=== PATIENT | male | born 1980 | race Caucasian/White ===

== ENCOUNTER 2021-05-13 19:08 | Emergency (ER) | payer BC, OTHER ==
[~2021-05-13 19:08] MED LIST: LEVEMIR100 UNIT/1 SQ
[2021-05-13 19:45] LABS: HEMOGLOBIN 17.2 gm/dl (14.0-17.5); RED BLOOD COUNT 5.61 M/UL (4.20-5.50); WHITE BLOOD COUNT 8.3 K/UL (4.5-11.0)
[2021-05-13 20:11] LABS: BUN/CREATININE RATIO 21 (0-10)
[2021-05-14 00:35] LABS: BUN/CREATININE RATIO 17 (0-10)
[2021-05-14] MEDS ORDERED: REGLAN5 MG PO (00:49)
[2021-05-15] MEDS ORDERED: ZOFRAN ODT 4 MG4 MG PO (01:57)
== END 2021-05-14 01:00 | disposition home or self-care (01) ==
LOC: ER1 19:08
PROVIDERS: Student in an Organized Health Care Education/Training Program
DX: E11.43 Type 2 diabetes mellitus with diabetic autonomic (poly)neuropathy (principal); K31.84 Gastroparesis; E87.6 Hypokalemia; Z20.822 Contact with and (suspected) exposure to COVID-19
CPT/HCPCS: 71045; 80053; 80307; 81001; 82009; 82550; 82553; 82803; 82962; 83605; 83690; 83735; 83874; 83880; 84100; 84439; 84443; 84484; 85025; 93005; 96365; 96375; 99284; G0480; J1885; J2270; J2405; J2765; J3475; J3480; J7070; Q9967; U0002

== ENCOUNTER 2021-05-14 18:58 | Emergency (ER) | payer OTHER ==
[~2021-05-14 18:58] MED LIST changes: +REGLAN5 MG PO
[2021-05-14 19:41] LABS: HEMOGLOBIN 15.3 gm/dl (14.0-17.5); WHITE BLOOD COUNT 6.4 K/UL (4.5-11.0)
[2021-05-14 19:44] LABS: RED BLOOD COUNT 5.03 M/UL (4.20-5.50)
[2021-05-14 20:24] LABS: BUN/CREATININE RATIO 14 (0-10)
[2021-05-15] MEDS ORDERED: ZOFRAN ODT 4 MG4 MG PO (01:57)
== END 2021-05-15 02:05 | disposition home or self-care (01) ==
LOC: ER1 18:58
PROVIDERS: Physician Assistant
DX: R11.2 Nausea with vomiting, unspecified (principal); E11.9 Type 2 diabetes mellitus without complications
CPT/HCPCS: 80053; 81001; 82009; 82800; 83690; 83735; 85025; 85652; 99283; J2270; J2765

== ENCOUNTER 2021-05-17 07:31 | Emergency (ER) | payer OTHER ==
[~2021-05-17 07:31] MED LIST changes: +ZOFRAN ODT 4 MG4 MG PO
[2021-05-17 08:42] LABS: HEMOGLOBIN 12.1 gm/dl (14.0-17.5); RED BLOOD COUNT 4.02 M/UL (4.20-5.50); WHITE BLOOD COUNT 34.7 K/UL (4.5-11.0)
[2021-05-17 14:01] LABS: BUN/CREATININE RATIO 39 (0-10)
== END 2021-05-17 15:10 ==
LOC: ER1 07:31
PROVIDERS: Emergency Medicine
DX: E11.10 Type 2 diabetes mellitus with ketoacidosis without coma (principal); E11.65 Type 2 diabetes mellitus with hyperglycemia; R41.82 Altered mental status, unspecified; Z20.822 Contact with and (suspected) exposure to COVID-19; E87.6 Hypokalemia; E87.2 Acidosis
CPT/HCPCS: 31500; 36556; 36600; 51702; 70450; 71045; 80053; 80307; 81001; 82009; 82550; 82553; 82803; 82962; 83605; 83690; 84439; 84443; 84484; 85007; 85027; 87040; 93005; 94002; 94760; 96374; 96375; 99285; 99291; 99292; C1751; J2250; J2704; J7070; U0002

== ENCOUNTER 2021-07-07 17:16 | Inpatient (IN) | payer OTHER ==
[2021-07-07 18:57] LABS: HEMOGLOBIN 15.7 gm/dl (14.0-17.5); RED BLOOD COUNT 5.04 M/UL (4.20-5.50); WHITE BLOOD COUNT 14.8 K/UL (4.5-11.0)
[2021-07-07 19:20] LABS: BUN/CREATININE RATIO 39 (0-10)
== END 2021-07-08 00:15 | disposition short-term general hospital (02) | DRG 639 ==
LOC: ER1 17:16 → CDU 20:19
PROVIDERS: Emergency Medicine; ADMIT Internal Medicine
DX: E11.10 Type 2 diabetes mellitus with ketoacidosis without coma (principal); E11.43 Type 2 diabetes mellitus with diabetic autonomic (poly)neuropathy; K31.84 Gastroparesis; Z20.822 Contact with and (suspected) exposure to COVID-19; Z79.899 Other long term (current) drug therapy; Z79.84 Long term (current) use of oral hypoglycemic drugs
CPT/HCPCS: 80053; 81001; 82009; 82800; 82962; 83605; 83690; 85025; 96365; 96375; 99284; J1170; J2405; J2550; J7030; Q9967; U0002

== ENCOUNTER 2021-12-09 00:45 | Emergency (ER) | payer OTHER ==
[2021-12-09 01:23] LABS: HEMOGLOBIN 14.4 gm/dl (14.0-17.5); RED BLOOD COUNT 4.98 M/UL (4.20-5.50); WHITE BLOOD COUNT 10.2 K/UL (4.5-11.0)
[2021-12-09 01:46] LABS: BUN/CREATININE RATIO 25 (0-10)
[2021-12-09] MEDS ORDERED: ZOFRAN ODT 4 MG4 MG PO (04:10)
[2021-12-09] MEDS ORDERED: BENTYL 20MG TAB20 MG PO (04:10)
== END 2021-12-09 05:45 | disposition home or self-care (01) ==
LOC: ER1 00:45
PROVIDERS: Physician Assistant
DX: E10.65 Type 1 diabetes mellitus with hyperglycemia (principal); R91.1 Solitary pulmonary nodule; Z20.822 Contact with and (suspected) exposure to COVID-19
CPT/HCPCS: 36600; 71045; 80053; 82009; 82803; 83605; 83690; 83735; 84439; 84443; 85025; 85652; 86140; 93005; 96374; 96375; 96376; 99285; J1885; J2405; J7030; Q9967; U0002

== ENCOUNTER 2021-12-12 06:27 | Inpatient (IN) | payer OTHER ==
[~2021-12-12] VITALS: Ht 190.5 cm; Wt 54.4 kg
[~2021-12-12 06:27] MED LIST changes: +BENTYL 20MG TAB20 MG PO
[2021-12-12 07:42] LABS: BUN/CREATININE RATIO 43 (0-10); HEMOGLOBIN 14.6 gm/dl (14.0-17.5); RED BLOOD COUNT 4.96 M/UL (4.20-5.50); WHITE BLOOD COUNT 14.4 K/UL (4.5-11.0)
[2021-12-12] MEDS ORDERED: INSULIN AS100 UNIT/3 SQ (10:15)
[2021-12-12 11:19] LABS: BUN/CREATININE RATIO 46 (0-10)
[2021-12-12 15:29] LABS: BUN/CREATININE RATIO 44 (0-10)
[2021-12-13 05:37] LABS: HEMOGLOBIN 12.2 gm/dl (14.0-17.5); RED BLOOD COUNT 4.14 M/UL (4.20-5.50); WHITE BLOOD COUNT 10.2 K/UL (4.5-11.0)
[2021-12-13 05:45] LABS: BUN/CREATININE RATIO 31 (0-10)
== END 2021-12-13 09:44 | disposition home or self-care (01) | DRG 638 ==
LOC: ER1 06:27 → CDU 09:07 → CCU 15:56
PROVIDERS: Nurse Practitioner; Physician Assistant Medical; ADMIT Internal Medicine
DX: E10.10 Type 1 diabetes mellitus with ketoacidosis without coma (principal); N13.30 Unspecified hydronephrosis; Z20.822 Contact with and (suspected) exposure to COVID-19; E44.0 Moderate protein-calorie malnutrition; Z68.1 Body mass index [BMI] 19.9 or less, adult; K20.90 Esophagitis, unspecified without bleeding; D72.828 Other elevated white blood cell count; A08.4 Viral intestinal infection, unspecified; E86.9 Volume depletion, unspecified; Z79.4 Long term (current) use of insulin; Z82.49 Family history of ischemic heart disease and other diseases of the circulatory system; Z83.3 Family history of diabetes mellitus
CPT/HCPCS: 0240U; 71045; 80048; 80053; 81001; 82009; 82550; 82553; 82803; 82962; 83036; 84484; 85025; 93005; 96374; 99285; J1650; Q9967